=== PATIENT | female | born 1965 | race African-American/Black ===

== ENCOUNTER 2019-06-24 00:55 | Day surgery (SDC) | payer BC, OTHER, SELFPAY ==
[2019-06-10 09:49] VITALS: BMI 43.9
[2019-06-24] VITALS (11 sets, daily range): BP systolic 102–145; BP diastolic 62–82; PULSE 74–85; RESP 14–18; TEMP 36.4–36.6; O2SAT 92–99
--- NOTE | 2019-06-24 06:55 | WPDANESEPPF ---
Anes - Initial Pre Proc Eval Procedure: Operation Date: 06/24/19 07:30 Proposed Procedures p Left Shoulder Rotator Cuff Repair(Left) - Lele Campbell MD Date/Time: 06/24/19 06:55 Surgeon: Lele Campbell MD Pre Op Diagnosis: Left Rotator Cuff Tear Patient Data Age: 53 Gender: F Height: 1.65 m Weight: 119.75 kg Allergies Allergy/AdvReac Type Severity Reaction Status Date / Time fluconazole Allergy Unknown Rash Verified 06/10/19 09:51 Penicillins Allergy Unknown Itching Verified 06/10/19 09:51 iodine Allergy Itching Verified 06/10/19 09:51 SEAFOOD Allergy Itching Uncoded 06/10/19 09:51 Home Medications Medication Instructions Recorded Confirmed Type amlodipine 10 mg PO DAILY 06/10/19 06/10/19 History indapamide 2.5 mg PO DAILY 06/10/19 06/10/19 History metoprolol tartrate 100 mg PO DAILY 06/10/19 06/10/19 History ECG: SINUS RHYTHM VOLTAGE CRITERIA FOR LVH BASELINE ARTIFACT- I, III, V6 BORDERLINE ECG Patient hx anesthesia problems: none Family hx anesthesia problems: none [facility] Past Medical History Medical History (Updated 06/23/19 @ 08:54 by Salvador Medel DO) Hypertension Morbid obesity Rotator cuff tear Surgical History Surgical History (Updated 06/23/19 @ 08:54 by Salvador Medel DO) History of cholecystectomy History of hernia repair Social History Social History Smoking status: Never smoker Alcohol intake: current Anes - Eval Final PreProcedure Day of Procedure 06/24/19 06:55 Patient weight: morbidly obese Heart: regular rate and rhythm Lungs: clear to auscultation and normal air movement Airway: Mallampati scale class II Neurological: alert and oriented Last oral intake: >/= 8 hours ASA classification: III Emergent: no Anesthetic plan: proceed Anesthesia type and monitoring: general ETT and standard monitoring Informed Consent: The patient's anesthetic plan and its attendant risks and benefits were discussed with the patient/family/POA. Questions were solicited and answers provided to the satisfaction of the patient/family/POA.
[2019-06-24] MEDS: LACTATED RINGERS 1,000 ML 30 ML IV CONT ×2 (07:00→10:26)
[2019-06-24] MEDS: CELECOXIB 200 MG CAPSULE PO (07:00)
--- NOTE | 2019-06-24 07:10 | WPDANESPNB ---
Anes - Peripheral Nerve Block Date/Time: 06/24/19 07:10 I have discussed with the patient/family/POA the placement of a peripheral nerve block for post-operative pain management, including associated risks, benefits, complications, and side effects. Alternative methods of post-operative analgesia were detailed. Questions were solicited and answers provided to the satisfaction of the patient/family/POA. Time-Out: A pre-procedural Time-Out was completed immediately before starting the procedure and confirmed: Patient Identification, Site, Procedure, Patient Position and the Availability of Requisite Equipment. Clinical Indications: Acute post-operative pain management requested by the operative surgeon. Nerve Block Insertion Note Anes-nerve block: interscalene left Patient position: supine Skin prep: chlorhexidine Needle: 22 gauge, stimulating, insulated echogenic needle. Needle length: 50 mm Technique: ultrasound Injectate: bupivacaine 0.5% with epi 5 mcg/ml (30cc) Observations: tolerated well Complications: none Procedure start time:: 746 Procedure end time:: 749
[2019-06-24 07:14] LABS: Potassium 3.6 mmol/L (3.4-5.0)
--- NOTE | 2019-06-24 07:42 | WPDHPUPDATE1 ---
History and Physical Update Update Date/Time: 06/24/19 07:42 History and Physical has been reviewed, including an updated exam of the patient. There are NO changes in the patient's condition. Risks, benefits, and alternatives have been discussed and questions answered. Patient agrees to proceed with procedure.
[2019-06-24] MEDS: CLINDAMYCIN 900 MG/NS 50 ML 900 MG/50 ML PIGGYBACK 50 MG IVPB (07:50)
[2019-06-24] MEDS: ceFAZolin SODIUM 1 GM VIAL 2 GM IV PUSH (08:36)
--- NOTE | 2019-06-24 10:14 | PM.OP ---
Procedure Note - Brief Procedure Note - Brief Date of procedure: 06/24/19 Pre-op diagnosis: Left Rotator Cuff Tear Post-op diagnosis: same Procedure performed: L ROTATOR CUFF REPAIR WITH BICEPS TENODESIS Anesthesia: GETA Surgeon: Lele Campbell MD Estimated blood loss (mL): 20 Drains: No Complications: No immediate complications Condition: stable Disposition: PACU
--- NOTE | 2019-06-24 15:08 | OP_ITS ---
CHANGED TO DRAFT 08/15/19 REPORT MOVED FROM [id number] TO CORRECT [id number]/ORIGINALLY SIGNED 06/26/19 @ 1342 DATE OF PROCEDURE: 06/24/2019 PREOPERATIVE DIAGNOSIS: Left rotator cuff tear. POSTOPERATIVE DIAGNOSIS: Left rotator cuff tear with a partial biceps tear. PROCEDURE: Left rotator cuff repair with biceps tenodesis. ANESTHESIA: General. COMPLICATIONS: None. INDICATIONS: This is a 53-year-old female who had ongoing pain. The pain became severe. She is diagnosed with a partial rotator cuff tear with aurticular-sided component. She was not responsive to conservative treatment. She was indicated for left rotator cuff repair. At the time of surgery, she was also found to have a split tear to the biceps tendon and biceps tenodesis was also performed. DESCRIPTION OF PROCEDURE: The patient was taken to the operating room in stable condition and placed in supine position. General anesthesia induced and she was placed in the beach chair position and the left upper extremity was prepped and draped sterilely from the fingers to the axillary and cervical region. Incision was made in between the AC joint and anterolateral acromion down to the subcutaneous tissues. Fascia was identified. A mini-open incision was made through the deltoid muscle. The subacromial space was identified. The first thing that was performed was inspection of the greater tuberosity and there was also a bursal-sided component tear, which was about 30% torn. The tear then was debrided until the footprint of the greater tuberosity was identified and on the undersurface of the rotator cuff there was significant fraying and there was probably about 30% to 40% thickness of the articular-sided tendon insertion. The tendon was then detached from the greater tuberosity and then access to the glenohumeral joint was achieved with continued dissection enough to insert a ball-tip drug and alcohol counselor and the glenohumeral joint was irrigated due to the amount of loose bodies that were found on the MRI. The lesser tuberosity was palpated and the subscapularis tendon was identified. There was no tear there. The biceps tendon was identified. There was a split tear of the biceps tendon, if decided that point that a biceps tenodesis would be performed. So the first thing was performed were two 5.5 Arthrex corkscrew anchors were placed into the greater tuberosity footprint, and then the rotator cuff was repaired back to the greater tuberosity and the repair was excellent. Next, the biceps tendon was debrided until the distal segment was free and then using a whipstitch with #2 FiberWire. A 4.75 SwiveLock anchor then was placed into the biceps groove, and then the biceps tendon was reinserted into the proximal humerus and then repair was excellent. Angle of the elbow was taken through range of motion, it showed that there was no significant tension on the biceps muscle. Once that was performed, then the wound was irrigated thoroughly with approximately 2 L of sterile water, and then the deltoid muscle was repaired with #2 FiberWire and with a 0 Vicryl suture. Subcutaneous tissues were repaired with a 2-0 Vicryl and 3-0 Quill as a subcuticular running stitch and Dermabond was placed. Sterile dressing was applied. The patient was placed back in the supine position. She was extubated and sent to Recovery. Curry I MT: Hal HENNING
== END 2019-06-24 13:05 | disposition home or self-care (01) ==
PROVIDERS: Anesthesiology; Visit Provider Orthopaedic Surgery
PROC: (CPT 23420; principal; 2019-06-24 07:30)
DX: S46.012A Strain of muscle(s) and tendon(s) of the rotator cuff of left shoulder, initial encounter (principal); S46.112A Strain of muscle, fascia and tendon of long head of biceps, left arm, initial encounter; W19.XXXA Unspecified fall, initial encounter; G89.18 Other acute postprocedural pain; I10 Essential (primary) hypertension; E66.01 Morbid (severe) obesity due to excess calories; Z68.41 Body mass index [BMI] 40.0-44.9, adult
CPT/HCPCS: 64415; 23410; 23430; 36415; 84132; A9270; C1713; J0330; J0690; J1100; J1170; J2250; J2405; J2704; J3010; J7120

== ENCOUNTER 2020-08-02 15:13 | Outpatient (CLI) | payer BC, OTHER, SELFPAY ==
--- NOTE | ~2020-08-02 | DEXA_ITS ---
Bone Density Report Name: Edith Ramirez Age: 54 Sex: Female Ethnicity: Black Date of : 1965 Indication: postmenopausal; height loss; Referring Provider: LAURA FARMER Study: Bone densitometry was performed. Exam Date: August 02, 2020 Accession number: [id number] Bone Density: Region BMD T-score Z-score Classification AP Spine (L1, L2, L3) 1.016 0.0 0.2 Normal Femoral Neck (Left) 0.780 -0.6 -0.4 Normal Total Hip (Left) 0.940 0.0 0.0 Normal Total Hip Bilateral Avg 0.970 0.3 0.2 Normal Femoral Neck (Right) 0.837 -0.1 0.0 Normal Total Hip (Right) 0.999 0.5 0.4 Normal World Health Organization criteria for BMD impression classify patients as: Normal (T-score at or above -1.0), Osteopenia (T-score between -1.0 and -2.5), or Osteoporosis (T-score at or below -2.5). 10-year Fracture Risk: FRAX not reported because: All T-scores for Spine Total, Hip Total, Femoral Neck at or above -1.0 Clinical Information Provided by Patient: Patient maximum height was 65.5 Menopause Age: 44 Drinks caffeinated beverages Onset of menses at age 14 Number of children 3 Impression: The patient has normal bone mass. Discussion: BONE DENSITY IS ABOVE THE MINIMUM DESIRABLE LEVEL AT ALL SKELETAL SITES TESTED. This patient?s bone mineral density is above the minimum desirable level (T-score -1.0 or better) at all sites measured. The patient should follow a healthful lifestyle (good nutrition with adequate calcium and vitamin D, and appropriate weight-bearing exercise). Follow-Up: Consider repeating this study in 5 years or sooner if there is some new clinical indication. Reported by: IRAM on 08/02/2020 3:39:00 PM. Reviewed, dictated and finalized at location A. [facility]
== END 2020-08-02 15:14 | disposition home or self-care (01) ==
PROVIDERS: Family Provider Obstetrics & Gynecology Gynecology; PCP Internal Medicine; Visit Provider Obstetrics & Gynecology
DX: Z78.0 Asymptomatic menopausal state (principal)
CPT/HCPCS: 77080; J2001; J2704

== ENCOUNTER 2020-08-16 15:07 | Outpatient (CLI) | payer BC, OTHER, SELFPAY ==
--- NOTE | ~2020-08-16 | MM_ITS ---
EXAMINATION: MM screening igor BI w ange HISTORY: Screening TECHNIQUE: Craniocaudal and mediolateral oblique 3-D tomosynthesis images were obtained and synthetic 2-D images were generated. CAD analysis was submitted and interpreted. COMPARISON: Comparison to multiple prior studies sequentially, with oldest reviewed study dated 08/04. BREAST PARENCHYMAL COMPOSITION: There are scattered areas of fibroglandular density. FINDINGS: There is no evidence of suspicious mass, calcification, or architectural distortion to sugg est malignancy in either breast. There has been no suspicious interval change. IMPRESSION: 1. No mammographic evidence of malignancy. 2. Recommend routine screening mammography in one year. BI-RADS Category 1: Negative Reviewed, dictated and finalized at location A. [employer]
== END 2020-08-16 15:08 | disposition home or self-care (01) ==
LOC: ANHIMG 15:10
PROVIDERS: PCP Internal Medicine; Visit Provider Obstetrics & Gynecology
DX: Z12.31 Encounter for screening mammogram for malignant neoplasm of breast (principal)
CPT/HCPCS: 77063; 77067

== ENCOUNTER 2021-04-04 15:30 | Outpatient (RCR) | payer BC, OTHER, SELFPAY ==
--- NOTE | 2021-02-26 09:29 | PTOPEVAL ---
INITIAL PHYSICAL THERAPY EVALUATION and PLAN OF CARE Thank you for referring Edith Ramirez to [facility].? Edith is scheduled to be seen for physical therapy? 1x/wk - once every 2 weeks for 6 weeks. Please review, sign, date and return this plan of care ENRIKE. I agree with and certify that the following plan of care is medically necessary. Referring Physician Date Admitting Provider: Attending Provider: Silvio Reese MD Referring Provider: *PT Outpatient Evaluation Start: 02/26/21 08:28 Freq: Status: Active Protocol: Document 02/26/21 08:25 LÁZARO (Rec: 02/26/21 09:29 LÁZARO [id number]) Therapy Assessment Status Assessment Status Assessment Status Evaluation Outpatient Past Medical History Past Medical History Source of Past Medical History Recalled from Previous Visit, Confirmed with Patient/Family Neurological History Hx Neurological Disorders No Significant History Cardiovascular History Hx Hypertension Yes Respiratory History Hx Respiratory Disorders No Significant History Gastrointestinal History Hx Cholecystectomy Yes Hx Hernia Yes: UMBILICAL HERNIA REPAIR WITH MESH Genitourinary History Hx Genitourinary Disorders No Significant History Musculoskeletal History Hx Other Musculoskeletal Disorders Yes: LEFT RTC TEAR Hematological History Hx Hematological Disorders No Significant History Endocrine History Hx Endocrine Disorders No Significant History HEENT History Hx HEENT Disorders No Significant History Integumentary History Hx Skin Disorders No Significant History Reproductive History Hx Post Menopausal Yes Hx Other Reproductive Disorders Yes: UTERINE ABLATION Psychosocial History Hx Psychiatric Disorders No Significant History Pain History History of Any Previous or Ongoing No Significant History Instance of Pain Anesthesia History Hx Anesthesia Reactions No Significant History Evaluation Information Problem Diagnosis Other specific disorders of muscle Onset has begun worsening 2.5 yrs Subjective Information Edith has c/o's increase of Query Text:As Reported By Patient/ urinary leakage, decreased Family control with urge sensation. What really began to bother her was when she had urge sensation - unable to hold urine - began to leak. No leakage with cough, sneeze. 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
--- NOTE | 2021-04-04 16:25 | PTOPEVAL ---
PHYSICAL THERAPY DISCHARGE SUMMARY Thank you for referring Edith Ramirez to [facility].? Edith was seen x 4 visits in PT. She is compliant and independent with her HEP. Goals have been met. Ready for d/c from PT to HEP. I agree with Edith's discharge from PT. Referring Physician Date Admitting Provider: Attending Provider: Silvio Reese MD Referring Provider: Therapy Assessment Status Assessment Status Assessment Status Discharge Evaluation Information Problem Diagnosis Other specific disorders of muscle Subjective Information Edith reports that at times Query Text:As Reported By Patient/ she will still get up 1x/night Family to urinate. Doing better with decrease use of pads - 50 % less. Doing well with exercises. Able to get to bathroom without leakage now. Pain Assessment Timing of Pain Assessment Timing of Pain Assessment Assessment Self Report Self Report Pain Level 0 Pelvic Health Evaluation Pelvic Floor Assessment Sustained Levator Ani Strength 4/5 Quick Levator Ani Contraction in 15 14 Seconds Pelvic Health Therapy Pelvic Health Exercise Isolated Levator Ani Contraction sitting on Palestinian ball - 10 ct Query Text:Position, Hold/Relaxation hold/10 ct relax x 5 reps Time, Repetitions Quick Contractions testing done Query Text:Position, Repetitions Therapeutic Ball side/side,front/back,CW/CCW, Query Text:Movement Direction, figure of 8 x 15 reps ea Repetitions Elevator Techniques going up x 4fls 10 ct hold, Query Text:Repetitions, Number of going down x 3 fls, variable - Steps Going Up, Number of Steps Going 5 reps ea Down Resistive 'Shh' Technique soft, long x 5 reps, quick, Query Text:Quick, Hard, Long, Soft, hard x 5 reps Number of Repetitions Relaxation Technique reviewed education on urge strategies - deep breathing with 6 quick contractions - to perform with urge - lying down, sitting, standing. Other Exercises plies - pelvic floor Query Text:Record Sets, Repetitions, contraction on way up - Resistance and Position reviewed Exercise Limitations None Response to Exercise Increased Strength Endurance Excellent Exercise Comments Instructed to stay with HEP on an usual basis as well as to tighten pelvic floor with lifting, pushing, pulling, etc activ
== END 2021-04-05 13:54 | disposition home or self-care (01) ==
LOC: ANHPT 15:30
PROVIDERS: PCP Internal Medicine; Visit Provider Obstetrics & Gynecology
DX: M62.89 Other specified disorders of muscle (principal)
CPT/HCPCS: 97110; 97161

== ENCOUNTER 2021-06-17 00:46 | Day surgery (SDC) | payer BC, OTHER, SELFPAY ==
[2021-05-31 11:04] VITALS: BMI 41.8
[2021-06-17 09:39] VITALS: BP 155/97; PULSE 71; RESP 18; TEMP 36.2; O2SAT 100; BMI 42.2
--- NOTE | 2021-06-17 09:42 | WPDANESEPPF ---
Anes - Initial Pre Proc Eval Procedure: Operation Date: 06/17/21 10:30 Proposed Procedures p Screening Colonoscopy - Gopi Lynch MD Date/Time: 06/17/21 09:42 Surgeon: Gopi Lynch MD Pre Op Diagnosis: neoplasm screening Patient Data Age: 55 Gender: F Height: 1.65 m Weight: 115.1 kg Last Vital Signs Temp 36.2 C L 06/17/21 09:39 Pulse 71 06/17/21 09:39 Resp 18 06/17/21 09:39 BP 155/97 H 06/17/21 09:39 Pulse Ox 100 06/17/21 09:39 Allergies Allergy/AdvReac Type Severity Reaction Status Date / Time fluconazole Allergy Unknown Rash Verified 06/17/21 09:38 Penicillins Allergy Unknown Itching Verified 06/17/21 09:38 iodine Allergy Itching Verified 06/17/21 09:38 SEAFOOD Allergy Itching Uncoded 05/31/21 11:03 Home Medications Medication Instructions Recorded Confirmed Type amlodipine 10 mg PO DAILY 06/10/19 05/31/21 History indapamide 2.5 mg PO DAILY 06/10/19 05/31/21 History metoprolol tartrate 100 mg PO DAILY 06/10/19 05/31/21 History omeprazole 40 mg PO DAILY 05/31/21 05/31/21 History Patient hx anesthesia problems: none Family hx anesthesia problems: none Results Review: All pre-operative results and documents have been reviewed as part of the pre-operative evaluation. [facility] Past Medical History Medical History (Updated 06/17/21 @ 09:45 by Gopi Lynch MD) Hypertension Morbid obesity Rotator cuff tear Vaginal delivery x 2 Surgical History Surgical History History of cholecystectomy History of endometrial ablation History of hernia repair Hx of repair of right rotator cuff Family History Family History Father Hypertension Mother Hypertension Other Family history of malignant neoplasm Social History Social History Smoking status: Never smoker Alcohol intake: current Living arrangements: with family Spiritual care concerns: No Anes - Eval Final PreProcedure Day of Procedure 06/17/21 09:42 Patient weight: morbidly obese Heart: regular rate and rhythm Lungs: clear to auscultation and normal air movement Airway: Mallampati scale class III Neurological: alert and oriented Last oral intake: >/= 8 hours ASA classification: III Emergent: no Anesthetic plan: proceed Anesthesia type and monitoring: general GIVS and standard monitoring Results Review: All pre-operative results and documents have been reviewed as part of the pre-operative evaluation. Informed Consent: The patient's anesthetic plan and its attendant risks and benefits were discussed with the patient/family/POA. Questions were solicited and answers provided to the satisfaction of the patient/family/POA.
--- NOTE | 2021-06-17 09:43 | WPDGICN ---
Assessment and Plan Assessment and plan (1) Encounter for screening colonoscopy: Code(s): Z12.11 - Encounter for screening for malignant neoplasm of colon Status: Acute Assessment and Plan: Patient presents for screening colonoscopy. Appears to be at average risk for colon polyps. GI Consult Note Consult date/time: 06/17/21 09:43 HPI: Edith Ramirez is a 55 year old female Presents for screening colonoscopy. Patient's current weight appetite and bowel movements are normal. She denies abdominal pain. She has had no bleeding. Family history is noncontributory. Review of Systems Review of Systems: All systems reviewed & are unremarkable except as noted in HPI and below PMFSH Past Medical History Medical History (Updated 06/17/21 @ 09:45 by Gopi Lynch MD) Hypertension Morbid obesity Rotator cuff tear Vaginal delivery x 2 Surgical History Surgical History History of cholecystectomy History of endometrial ablation History of hernia repair Hx of repair of right rotator cuff Family History Family History Father Hypertension Mother Hypertension Other Family history of malignant neoplasm Social History Social History Smoking status: Never smoker Alcohol intake: current Living arrangements: with family Spiritual care concerns: No Meds Home Medications and Allergies Home Medications Medication Instructions Recorded Confirmed Type amlodipine 10 mg PO DAILY 06/10/19 05/31/21 History indapamide 2.5 mg PO DAILY 06/10/19 05/31/21 History metoprolol tartrate 100 mg PO DAILY 06/10/19 05/31/21 History omeprazole 40 mg PO DAILY 05/31/21 05/31/21 History Allergies Allergy/AdvReac Type Severity Reaction Status Date / Time fluconazole Allergy Unknown Rash Verified 06/17/21 09:38 Penicillins Allergy Unknown Itching Verified 06/17/21 09:38 iodine Allergy Itching Verified 06/17/21 09:38 SEAFOOD Allergy Itching Uncoded 05/31/21 11:03 Vital Signs Vital Signs - 24 hr 06/17/21 09:39 Temperature 97.1 F L Pulse Rate 71 Respiratory Rate 18 Blood Pressure 155/97 H Pulse Oximetry 100 Exam Narrative: Physical exam reveals patient be alert. Vital signs stable. HEENT exam is unremarkable. Patient is anicteric. Lungs are clear. Heart without murmur. Abdomen is obese. Bowel sounds are present soft nontender with no hepatosplenomegaly. Digital external rectal exam is normal.
[2021-06-17] MEDS: LACTATED RINGERS 1,000 ML 150 ML IV CONT (09:50)
[2021-06-17 10:38] VITALS: BP 114/75; PULSE 64; RESP 17; O2SAT 100
[2021-06-17 10:48] VITALS: BP 118/77; PULSE 61; RESP 16; O2SAT 100
[2021-06-17 10:58] VITALS: BP 129/86; PULSE 58; RESP 16; O2SAT 100
== END 2021-06-17 11:12 | disposition home or self-care (01) ==
PROVIDERS: PCP Internal Medicine; Visit Provider Internal Medicine Gastroenterology
PROC: 0DJD8ZZ Inspection of Lower Intestinal Tract, Via Natural or Artificial Opening Endoscopic (ICD-10-PCS; CPT 45378; principal; 2021-06-17 10:30)
DX: Z12.11 Encounter for screening for malignant neoplasm of colon (principal); K64.8 Other hemorrhoids; I10 Essential (primary) hypertension; E66.01 Morbid (severe) obesity due to excess calories; Z68.41 Body mass index [BMI] 40.0-44.9, adult
CPT/HCPCS: 45378; J2704; J7120

== ENCOUNTER 2022-04-12 12:58 | Outpatient (CLI) | payer BC, OTHER, SELFPAY ==
--- NOTE | ~2022-04-12 | MM_ITS ---
EXAMINATION: MM screening igor BI w ange HISTORY: Screening TECHNIQUE: Craniocaudal and mediolateral oblique 3-D tomosynthesis images were obtained and synthetic 2-D images were generated. CAD analysis was submitted and interpreted. COMPARISON: Comparison to multiple prior studies sequentially, with oldest reviewed study dated 08/25. BREAST PARENCHYMAL COMPOSITION: There are scattered areas of fibroglandular density. FINDINGS: There is no evidence of suspicious mass, calcification, or architectural distortion to sugg est malignancy in either breast. There has been no suspicious interval change. IMPRESSION: 1. No mammographic evidence of malignancy. 2. Recommend routine screening mammography in one year. BI-RADS Category 1: Negative Reviewed, dictated and finalized at location A.
== END 2022-04-12 12:59 | disposition home or self-care (01) ==
PROVIDERS: PCP Internal Medicine; Visit Provider Obstetrics & Gynecology
DX: Z12.31 Encounter for screening mammogram for malignant neoplasm of breast (principal)
CPT/HCPCS: 77063; 77067

== ENCOUNTER 2022-06-17 07:50 | Day surgery (SDC) | payer OTHER, SELFPAY ==
[2022-06-04 14:50] VITALS: BMI 33.0
[2022-06-17 10:01] VITALS: BMI 41.3
--- NOTE | 2022-06-17 10:08 | WPDHPUPDATE1 ---
History and Physical Update Update Date/Time: 06/17/22 10:08 History and Physical has been reviewed, including an updated exam of the patient. There are NO changes in the patient's condition. Risks, benefits, and alternatives have been discussed and questions answered. Patient agrees to proceed with procedure.
[2022-06-17] MEDS: LACTATED RINGERS 1,000 ML 150 ML IV CONT (10:20)
--- NOTE | 2022-06-17 10:41 | WPDANESEPPF ---
Anes - Initial Pre Proc Eval Procedure: Operation Date: 06/17/22 11:30 Proposed Procedures p Esophagogastroduodenoscopy - Gopi Lynch MD Date/Time: 06/17/22 10:41 Surgeon: Gopi Lynch MD Pre Op Diagnosis: GERD, nausea Patient Data Age: 56 Gender: F Height: 1.65 m Weight: 112.8 kg Allergies Allergy/AdvReac Type Severity Reaction Status Date / Time Penicillins Allergy Unknown Itching Verified 06/17/22 10:00 iodine Allergy Itching Verified 06/17/22 10:00 SEAFOOD Allergy Itching Uncoded 06/17/22 10:00 Home Medications Medication Instructions Recorded Confirmed Type amlodipine 10 mg tablet 10 mg PO DAILY 06/10/19 06/04/22 History indapamide 2.5 mg tablet 2.5 mg PO DAILY 06/10/19 06/04/22 History metoprolol tartrate 100 mg tablet 100 mg PO DAILY 06/10/19 06/04/22 History omeprazole 40 mg capsule,delayed 40 mg PO DAILY 05/31/21 06/04/22 History release famotidine 20 mg tablet (Pepcid) 20 mg PO QHS 1 month #30 tabs 05/19/22 06/04/22 Rx Patient hx anesthesia problems: none Family hx anesthesia problems: none Results Review: All pre-operative results and documents have been reviewed as part of the pre-operative evaluation. [facility] Past Medical History Medical History (Updated 05/19/22 @ 10:22 by Ysabel Salgado, POLICE MANAGER-C) Hypertension Morbid obesity Rotator cuff tear Vaginal delivery x 2 Surgical History Surgical History History of cholecystectomy History of endometrial ablation History of hernia repair Hx of repair of right rotator cuff Family History Family History Father Hypertension Mother Hypertension Other Family history of malignant neoplasm Social History Social History Smoking status: Never smoker Alcohol intake: current Living arrangements: with family Spiritual care concerns: No Anes - Eval Final PreProcedure Day of Procedure 06/17/22 10:41 Patient weight: morbidly obese Heart: regular rate and rhythm Lungs: clear to auscultation Airway: Mallampati scale class II Neurological: alert and oriented Last oral intake: >/= 8 hours ASA classification: III Emergent: no Anesthetic plan: proceed Anesthesia type and monitoring: general GIVS and standard monitoring Results Review: All pre-operative results and documents have been reviewed as part of the pre-operative evaluation. Informed Consent: The patient's anesthetic plan and its attendant risks and benefits were discussed with the patient/family/POA. Questions were solicited and answers provided to the satisfaction of the patient/family/POA.
[2022-06-17 11:13] VITALS: BP 103/58; PULSE 82; RESP 17; O2SAT 95
[2022-06-17 11:23] VITALS: BP 122/71; PULSE 76; RESP 21; O2SAT 98
[2022-06-17 11:33] VITALS: BP 117/74; PULSE 67; RESP 16; O2SAT 100
== END 2022-06-17 11:48 | disposition home or self-care (01) ==
PROVIDERS: PCP Internal Medicine; Visit Provider Internal Medicine Gastroenterology
PROC: 0DJ08ZZ Inspection of Upper Intestinal Tract, Via Natural or Artificial Opening Endoscopic (ICD-10-PCS; CPT 43235; principal; 2022-06-17 11:30)
DX: K21.9 Gastro-esophageal reflux disease without esophagitis (principal); K31.7 Polyp of stomach and duodenum; I10 Essential (primary) hypertension; E66.01 Morbid (severe) obesity due to excess calories; Z68.41 Body mass index [BMI] 40.0-44.9, adult
CPT/HCPCS: 43251; 88305; J2704; J7120

== ENCOUNTER 2023-08-17 13:35 | Outpatient (CLI) | payer OTHER, SELFPAY ==
--- NOTE | ~2023-08-17 | MM_ITS ---
EXAMINATION: MM screening igor BI w ange HISTORY: Screening mammogram TECHNIQUE: Craniocaudal and mediolateral oblique 3-D tomosynthesis images were obtained and synthetic 2-D images were generated. CAD analysis was submitted and interpreted. COMPARISON: 04/12/2022, 08/16/2020 bilateral screening mammogram examinations BREAST PARENCHYMAL COMPOSITION: There are scattered areas of fibroglandular density. FINDINGS: There is no evidence of suspicious mass, calcification, or architectural distortion to sugg est malignancy in either breast. There has been no suspicious interval change. IMPRESSION: 1. No mammographic evidence of malignancy. 2. Recommend routine screening mammography in one year. BI-RADS Category 1: Negative Reviewed, dictated and finalized at location A. R CLERK
== END 2023-08-17 13:36 | disposition home or self-care (01) ==
LOC: ANHIMG 13:37
PROVIDERS: PCP Internal Medicine; Visit Provider Obstetrics & Gynecology
DX: Z12.31 Encounter for screening mammogram for malignant neoplasm of breast (principal)
CPT/HCPCS: 77063; 77067